=== PATIENT | male | born 1985 | race African-American/Black ===

== ENCOUNTER → 2024-03-28 | Outpatient (CLI) | LOC: M SOG 07:52 | PROVIDERS: ATTEND Physician Assistant | DX: M25.532 Pain in left wrist (principal) ==

== ENCOUNTER → 2024-04-24 | Outpatient (CLI) | LOC: M SOG 10:34 | PROVIDERS: ATTEND Orthopaedic Surgery Hand Surgery | DX: M24.832 Other specific joint derangements of left wrist, not elsewhere classified (principal) ==

== ENCOUNTER → 2024-06-04 | Outpatient (CLI) | payer OTHER ==
[~2024-06-04] MED LIST: ISOVUE-300 61% 100ML VIAL As Ordered ONE; LIDOCAINE 1% MDV 20ML VIAL As Ordered ONE; PROHANCE 279.3MG/ML 5ML VIAL As Ordered ONE
== END ==
LOC: M RAD 06:02
PROVIDERS: ATTEND Orthopaedic Surgery Hand Surgery
DX: M25.532 Pain in left wrist (principal); S52.602A Unspecified fracture of lower end of left ulna, initial encounter for closed fracture; M67.432 Ganglion, left wrist; X58.XXXA Exposure to other specified factors, initial encounter; Y92.9 Unspecified place or not applicable
CPT/HCPCS: 25246; 73223; 77002; A9576; Q9967

== ENCOUNTER → 2025-01-02 | Outpatient (CLI) | payer OTHER | LOC: M SOG 13:24 | PROVIDERS: ATTEND Orthopaedic Surgery Hand Surgery | DX: M19.031 Primary osteoarthritis, right wrist (principal); M19.032 Primary osteoarthritis, left wrist; M25.531 Pain in right wrist; M25.532 Pain in left wrist ==